=== PATIENT | female | born 1945 | race Caucasian/White ===

== ENCOUNTER 2024-03-01 17:33 | Inpatient (IN) | payer OTHER ==
[2024-03-01 19:57] LABS: BASO % 0.3 % (0-2.0); EOS % 0.1 % (0-4.5); HEMATOCRIT 34.3 % (32.4-45.2); HEMOGLOBIN 11.8 GM/dL (10.7-15.3); LYMPH % 15.2 % (8-40); MCH 28.9 pg (25.7-33.7); MCHC 34.4 g/dl (32.0-36.0); MEAN PLT VOLUME 7.4 fl (7.5-11.1); MONO % 8.5 % (3.8-10.2); NEUT % 75.9 % (42.8-82.8); PLATELET COUNT 200 10^3/uL (134-434); RBC 4.08 M/mm3 (3.60-5.2); WHITE BLOOD COUNT 10.6 K/mm3 (4.0-10.0)
[2024-03-01 20:05] LABS: INR 1.04 (0.83-1.09); PROTHROMBIN TIME (PATIENT) 11.9 SEC (9.7-13.0)
[2024-03-01 20:08] LABS: ACTIVATED PTT 28.6 SECONDS (25.2-36.5)
[2024-03-01 20:10] LABS: ALBUMIN 3.8 g/dl (3.4-5.0); MAGNESIUM 2.1 mg/dL (1.8-2.4)
[2024-03-01 20:11] LABS: CALCIUM 9.3 mg/dL (8.5-10.1)
[2024-03-01 20:12] LABS: BLOOD UREA NITROGEN 8.7 mg/dL (7-18)
[2024-03-01 20:14] LABS: CREATININE 0.8 mg/dL (0.55-1.3)
[2024-03-01 20:15] LABS: TOT PROT 6.6 g/dl (6.4-8.2)
[2024-03-01 20:16] LABS: BILIRUBIN,TOTAL 0.8 mg/dL (0.2-1)
[2024-03-01 21:12] LABS: EPI CELLS 5 /uL (0-25.1); HYALINE CASTS 0 /uL (0-3.1); URINE APPEARANCE CLEAR; URINE BACTERIA 9 /uL (0-1359); URINE BILIRUBIN NEGATIVE (NEGATIVE); URINE COLOR YELLOW; URINE GLUCOSE (UA) NEGATIVE (NEGATIVE); URINE KETONE 1+ (NEGATIVE); URINE LEUK ESTERASE TRACE (NEGATIVE); URINE NITRITE NEGATIVE (NEGATIVE); URINE PROTEIN NEGATIVE (NEGATIVE); URINE RBC 14 /uL (0-23.9); URINE UROBILINOGEN 0.2 mg/dL (0.2-1.0); URINE WBC 24 /uL (0-25.8)
[2024-03-02] MEDS ORDERED: ONDANSETRON *ODT* 4 MG TABLET ONE (02:34)
[2024-03-02] MEDS: ONDANSETRON 4 MG TABLET PO ONE (02:34)
[2024-03-02] MEDS: ONDANSETRON 4 MG/2 ML VIAL IVPUSH PRN (05:11)
[2024-03-02 06:00] VITALS: BMI 21.2
[2024-03-02] MEDS: ASPIRIN 325 MG TABLET PO ONE (06:32)
[2024-03-02] MEDS: ATORVASTATIN CA 40 MG TABLET (FP) PO ONE (06:33)
[2024-03-02 07:04] LABS: BASO % 0.2 % (0-2.0); EOS % 0.1 % (0-4.5); HEMATOCRIT 35.1 % (32.4-45.2); HEMOGLOBIN 11.9 GM/dL (10.7-15.3); LYMPH % 14.3 % (8-40); MCH 28.7 pg (25.7-33.7); MCHC 33.9 g/dl (32.0-36.0); MEAN CELL VOLUME 84.5 fl (80-96); MEAN PLT VOLUME 7.8 fl (7.5-11.1); MONO % 8.1 % (3.8-10.2); NEUT % 77.3 % (42.8-82.8); PLATELET COUNT 204 10^3/uL (134-434); RBC 4.15 M/mm3 (3.60-5.2); RDW 13.7 % (11.6-15.6); WHITE BLOOD COUNT 9.9 K/mm3 (4.0-10.0)
[2024-03-02 07:23] LABS: CALCIUM 8.8 mg/dL (8.5-10.1)
[2024-03-02 07:24] LABS: ALBUMIN 3.7 g/dl (3.4-5.0); BLOOD UREA NITROGEN 7.1 mg/dL (7-18)
[2024-03-02 07:27] LABS: CREATININE 0.7 mg/dL (0.55-1.3)
[2024-03-02 07:28] LABS: PHOSPHOROUS 2.5 mg/dL (2.5-4.9)
[2024-03-02 07:29] LABS: BILIRUBIN,TOTAL 0.9 mg/dL (0.2-1); TOT PROT 6.7 g/dl (6.4-8.2)
[2024-03-02] MEDS: TRIMETHOBENZAMIDE HCL 200MG/2ML INJ IM ONE (09:20)
[2024-03-02] MEDS: LOSARTAN POTASSIUM 50 MG TABLET PO SCH (15:48)
[2024-03-02] MEDS: ENOXAPARIN NA (PORCINE) 40 MG/0.4 ML DISP.SYRIN SQ SCH (15:50)
[2024-03-02] MEDS: ASPIRIN 81 MG CHEWABLE TABLETS PO SCH (15:50)
[2024-03-02] MEDS: TRIMETHOBENZAMIDE HCL 200MG/2ML INJ IM PRN (19:13)
[2024-03-02] MEDS: ACETAMINOPHEN 325 MG TABLET (FP) PO ONE (21:10)
[2024-03-02] MEDS: ROSUVASTATIN CA 20 MG TABLET PO SCH (21:11)
[2024-03-02] MEDS: LATANOPROST 0.005% OPHTH SOLN 2.5ML BOTTLE OU SCH (21:12)
[2024-03-02] MEDS ORDERED: ATORVASTATIN CA 40 MG TABLET (FP) PO SCH ×2 (22:00)
[2024-03-02] MEDS ORDERED: ROSUVASTATIN CA 20 MG TABLET PO SCH (22:00)
[2024-03-03] MEDS: ACETAMINOPHEN 325 MG TABLET (FP) PO ONE ×3 (06:04→21:35)
[2024-03-03 07:17] LABS: BASO % 0.2 % (0-2.0); HEMATOCRIT 33.8 % (32.4-45.2); HEMOGLOBIN 11.6 GM/dL (10.7-15.3); MCH 28.9 pg (25.7-33.7); MCHC 34.4 g/dl (32.0-36.0); MEAN PLT VOLUME 7.7 fl (7.5-11.1); MONO % 10.3 % (3.8-10.2); NEUT % 72.5 % (42.8-82.8); PLATELET COUNT 207 10^3/uL (134-434); RBC 4.03 M/mm3 (3.60-5.2); RDW 13.6 % (11.6-15.6); WHITE BLOOD COUNT 8.2 K/mm3 (4.0-10.0)
[2024-03-03 07:40] LABS: ALBUMIN 3.5 g/dl (3.4-5.0); CALCIUM 8.8 mg/dL (8.5-10.1)
[2024-03-03 07:41] LABS: BLOOD UREA NITROGEN 10.2 mg/dL (7-18)
[2024-03-03 07:44] LABS: CREATININE 0.8 mg/dL (0.55-1.3); PHOSPHOROUS 2.1 mg/dL (2.5-4.9)
[2024-03-03 07:45] LABS: BILIRUBIN,TOTAL 0.9 mg/dL (0.2-1); TOT PROT 6.6 g/dl (6.4-8.2)
[2024-03-03] MEDS: CLOPIDOGREL BISULFATE 75 MG TABLET (FP) PO SCH (09:43)
[2024-03-03] MEDS: ASPIRIN COATED 81 MG TABLET.EC PO SCH (09:43)
[2024-03-03] MEDS: NAPH,MB-DB/K PH,MBDB POWDER PACKET PO ONE (17:23)
[2024-03-03] MEDS: NAPH,MB-DB/K PH,MBDB POWDER PACKET PO SCH (21:10)
[2024-03-03] MEDS: SODIUM CHLORIDE 1,000 ML IV SCH (21:15)
[2024-03-04 02:54] LABS: EPI CELLS 29 /uL (0-25.1); HYALINE CASTS 1 /uL (0-3.1); PH,URINE 5.5 (5.0-8.0); URINE APPEARANCE CLEAR; URINE BACTERIA 34 /uL (0-1359); URINE BILIRUBIN NEGATIVE (NEGATIVE); URINE COLOR YELLOW; URINE GLUCOSE (UA) NEGATIVE (NEGATIVE); URINE KETONE 1+ (NEGATIVE); URINE LEUK ESTERASE 2+ (NEGATIVE); URINE NITRITE NEGATIVE (NEGATIVE); URINE PROTEIN NEGATIVE (NEGATIVE); URINE RBC 13 /uL (0-23.9); URINE WBC 151 /uL (0-25.8)
[2024-03-04] MEDS: CEFTRIAXONE 1 GM in DEXTROSE 5%-WATER - 50 ML IVPB ONE ×2 (05:20→21:06)
[2024-03-04 07:46] LABS: BASO % 0.2 % (0-2.0); HEMATOCRIT 36.9 % (32.4-45.2); HEMOGLOBIN 12.5 GM/dL (10.7-15.3); LYMPH % 20.1 % (8-40); MCH 28.7 pg (25.7-33.7); MCHC 33.8 g/dl (32.0-36.0); MEAN PLT VOLUME 7.6 fl (7.5-11.1); MONO % 10.4 % (3.8-10.2); NEUT % 69.3 % (42.8-82.8); PLATELET COUNT 224 10^3/uL (134-434); RBC 4.34 M/mm3 (3.60-5.2); RDW 13.7 % (11.6-15.6); WHITE BLOOD COUNT 8.9 K/mm3 (4.0-10.0)
[2024-03-04 08:07] LABS: POTASSIUM 3.7 mmol/L (3.5-5.1)
[2024-03-04 08:12] LABS: CALCIUM 8.8 mg/dL (8.5-10.1)
[2024-03-04 08:13] LABS: ALBUMIN 3.6 g/dl (3.4-5.0); BLOOD UREA NITROGEN 11.9 mg/dL (7-18); MAGNESIUM 2.5 mg/dL (1.8-2.4)
[2024-03-04 08:16] LABS: CREATININE 0.9 mg/dL (0.55-1.3); PHOSPHOROUS 2.6 mg/dL (2.5-4.9)
[2024-03-04 08:18] LABS: BILIRUBIN,TOTAL 0.5 mg/dL (0.2-1); TOT PROT 7.3 g/dl (6.4-8.2)
[2024-03-04] MEDS: SODIUM CHLORIDE 1,000 ML IV SCH (12:17)
[2024-03-04] MEDS: ACETAMINOPHEN 325 MG TABLET (FP) PO PRN (21:06)
[2024-03-05] MEDS ORDERED: CEFTRIAXONE 1 GM in DEXTROSE 5%-WATER - 50 ML IVPB SCH (05:00)
[2024-03-05 08:40] LABS: BASO % 0.4 % (0-2.0); EOS % 0.4 % (0-4.5); HEMOGLOBIN 12.6 GM/dL (10.7-15.3); LYMPH % 26.5 % (8-40); MCH 29.1 pg (25.7-33.7); MEAN CELL VOLUME 83.1 fl (80-96); MEAN PLT VOLUME 7.5 fl (7.5-11.1); MONO % 10.9 % (3.8-10.2); NEUT % 61.8 % (42.8-82.8); PLATELET COUNT 232 10^3/uL (134-434); RBC 4.33 M/mm3 (3.60-5.2); RDW 13.7 % (11.6-15.6); WHITE BLOOD COUNT 6.7 K/mm3 (4.0-10.0)
[2024-03-05 09:02] LABS: POTASSIUM 4.1 mmol/L (3.5-5.1)
[2024-03-05 09:06] LABS: ALBUMIN 3.2 g/dl (3.4-5.0); CALCIUM 9.1 mg/dL (8.5-10.1); MAGNESIUM 2.3 mg/dL (1.8-2.4)
[2024-03-05 09:10] LABS: CREATININE 0.7 mg/dL (0.55-1.3); PHOSPHOROUS 2.6 mg/dL (2.5-4.9)
[2024-03-05 09:11] LABS: BILIRUBIN,TOTAL 0.5 mg/dL (0.2-1); TOT PROT 6.3 g/dl (6.4-8.2)
[2024-03-05 19:02] VITALS: RESP 18
[2024-03-06] MEDS: diphenhydrAMINE HCL 25 MG CAPSULE (FP) PO ONE (05:40)
[2024-03-06 06:49] LABS: BASO % 0.4 % (0-2.0); EOS % 0.9 % (0-4.5); HEMATOCRIT 38.1 % (32.4-45.2); HEMOGLOBIN 12.9 GM/dL (10.7-15.3); MCH 28.5 pg (25.7-33.7); MCHC 33.9 g/dl (32.0-36.0); MEAN CELL VOLUME 83.8 fl (80-96); MEAN PLT VOLUME 7.3 fl (7.5-11.1); MONO % 9.9 % (3.8-10.2); NEUT % 59.8 % (42.8-82.8); PLATELET COUNT 259 10^3/uL (134-434); RBC 4.55 M/mm3 (3.60-5.2); RDW 13.9 % (11.6-15.6); WHITE BLOOD COUNT 6.7 K/mm3 (4.0-10.0)
[2024-03-06 07:06] LABS: POTASSIUM 4.7 mmol/L (3.5-5.1)
[2024-03-06 07:10] LABS: BLOOD UREA NITROGEN 9.6 mg/dL (7-18); CALCIUM 9.4 mg/dL (8.5-10.1)
[2024-03-06 07:11] LABS: MAGNESIUM 2.2 mg/dL (1.8-2.4)
[2024-03-06 07:14] LABS: CREATININE 0.8 mg/dL (0.55-1.3); PHOSPHOROUS 3.5 mg/dL (2.5-4.9)
[2024-03-06] MEDS: SODIUM CHLORIDE 1 GM TABLET PO SCH (12:25)
[2024-03-06 15:22] VITALS: BP 127/92; PULSE 85; TEMP 97.9
[2024-03-09 14:09] LABS: BABESIA MICROTI ANTIBODY IGG <1:10 (Neg:<1:10); BABESIA MICROTI ANTIBODY IGM <1:10 (Neg:<1:10)
[2024-03-09 15:09] LABS: E.chaff HME IgG Negative (Neg:<1:64)
== END 2024-03-06 15:28 | DRG 65 ==
LOC: JER 17:33 → OBSVTOIN 03-02 01:50 → INTOOBSV 03-02 01:50 → JERBED 03-02 01:50 → J4W 03-02 04:56
PROVIDERS: ADMIT Internal Medicine; ATTEND Internal Medicine
DX: I63.89 Other cerebral infarction (principal); E87.1 Hypo-osmolality and hyponatremia; N39.0 Urinary tract infection, site not specified; I69.354 Hemiplegia and hemiparesis following cerebral infarction affecting left non-dominant side; R29.701 NIHSS score 1; E78.5 Hyperlipidemia, unspecified; R11.0 Nausea; H40.9 Unspecified glaucoma
CPT/HCPCS: 0241U-QW; 36415; 70450-TC; 70496-TC; 70498-TC; 70551-TC; 71045-TC-FY; 80048; 80053; 80061; 81003; 82550; 82930; 83036; 83735; 83930; 83935; 84100; 84300; 84484; 85025; 85610; 85651; 85730; 86140; 86618; 86666; 86753; 86850; 86900; 86901; 87040; 87086; 87798; 93005; 93010; 93306-TC; 93880-TC; 94010; 97116-GP; 97162-GP; 99285-25; Q9967